=== PATIENT | female | born 1990 | race Caucasian/White ===

== ENCOUNTER 2020-01-21 22:23 | Emergency (ER) | payer OTHER ==
[2020-01-21 22:32] VITALS: BP 118/73; PULSE 80; TEMP 98.1; BMI 25.0
== END 2020-01-22 01:23 | disposition home or self-care (01) ==
LOC: JER 22:23
PROC: 0HQMXZZ Repair Right Foot Skin, External Approach (ICD-10-PCS; principal; 2020-01-21)
DX: S91.311A Laceration without foreign body, right foot, initial encounter (principal)
CPT/HCPCS: 99282-25